=== PATIENT | female | born 1980 | race Caucasian/White ===

== ENCOUNTER 2019-02-15 20:08 | Emergency (ER) | payer OTHER ==
[~2019-02-15] VITALS: Ht 157.5 cm; Wt 95.3 kg
[~2019-02-15 20:08] MED LIST: IBUPROFEN PRN PAIN; TYLENOL PRN FEVER
[2019-02-15 20:10] VITALS: BP 130/95
--- NOTE | 2019-02-15 20:13 | NUR ---
TO LOBBY A/W BED AMBULATORY
--- NOTE | 2019-02-15 20:36 | NUR ---
PT AMBULATED TO BED #11
--- NOTE | 2019-02-15 20:40 | NUR ---
38/F PRESENTS TO ED WITH , C/O PERSISTENT L SIDED MIGRAINE HEAD, SINCE LAST SATURDAY. PT STATED THAT SHE WAS RECENTLY TAKEN OFF RX TOPAMAX AND RX IMITREX IS NOT WORKING. REPORTS INTERMITTENT "BLINDNESS" AND R SIDED HAND/ARM NUMBNESS THAT PT DESCRIBES TO BE USUAL WITH HER MIGRAINE ATTACKS. AOX4, GCS 15, PERRLA 3MM, RR EVEN AND UNLABORED. HX MIGRAINE, TUBAL LIGATION RX IMITREX, VERAPAMIL
--- NOTE | 2019-02-15 21:05 | NUR ---
DR BUSTILLOS AT BEDSIDE
[2019-02-15] MEDS ORDERED: diphenhydrAMINE 50 MG/ML VIAL IM ONE (21:15)
[2019-02-15] MEDS ORDERED: PROCHLORPERAZINE 10 MG/2 ML VIAL IM ONE (21:15)
--- NOTE | 2019-02-15 21:15 | NUR ---
PT TAKEN TO CT
--- NOTE | 2019-02-15 21:22 | NUR ---
PT RETURN FROM CT
[2019-02-15 23:00] VITALS: BP 102/68
--- NOTE | 2019-02-15 23:00 | NUR ---
Patient discharged with v/s stable. Written and verbal after care instructions given and explained. Patient alert, oriented and verbalized understanding of instructions. Ambulatory with steady gait. All questions addressed prior to discharge. ID band removed. Patient advised to follow up with PMD. Rx of Tramadol, Motrin, Zofran given. Patient educated on indication of medication including possible reaction and side effects. Opportunity to ask questions provided and answered.
== END 2019-02-15 23:00 | disposition home or self-care (01) ==
LOC: MED 20:08
DX: G43.909 Migraine, unspecified, not intractable, without status migrainosus (principal); J45.909 Unspecified asthma, uncomplicated; K21.9 Gastro-esophageal reflux disease without esophagitis; Z79.1 Long term (current) use of non-steroidal anti-inflammatories (NSAID); Z88.2 Allergy status to sulfonamides; Z88.1 Allergy status to other antibiotic agents; Z91.011 Allergy to milk products
CPT/HCPCS: 70450; 81025; 96372; 99284; J0780; J1200